=== PATIENT | female | born 1995 | race Caucasian/White ===

== ENCOUNTER 2024-09-09 16:51 | Observation (INO) | payer MEDICAID, SELFPAY ==
[2024-09-09] VITALS (45 sets, daily range): BP systolic 100–116; BP diastolic 52–80; PULSE 83–135; RESP 18–98; TEMP 36.9; O2SAT 96–100; BMI 29.2
[2024-09-09 17:44] LABS: ROM Kit Lot # 57807112; ROM Swab Mixed By: HILEL1; Swb Mxed in Solvent 1 min? Yes
[2024-09-09] MEDS: RINGERS LACTATED 1000 ML 1,000 ML 999 ML IV (18:00)
[2024-09-09 18:03] LABS: Rupture of Fetal Membranes Negative (Negative)
[2024-09-09] MEDS: TERBUTALINE SULF INJ 1 MG/ML VIAL 0.25 MG SC (19:01)
--- NOTE | 2024-09-09 19:42 | XR_ITS ---
Examination: Complete OB ultrasound greater than 14 weeks Date and time of exam: September 09, 20242014 hrs. Indications: Onset pelvic contractions today Findings: Viable intrauterine single fetus with single amniotic sac presentation cephalic Cardiac motion 164 BPM Placenta anterior grade 2 Umbilical cord insertion 3 vessel seen Amniotic fluid index 14.3 cm spine maternal right Cervix 4.2 cm Ovaries obscured by bowel gas. Composite estimated gestational age based on BPD, head circumference, abdominal circumference, femur length is 35 weeks 2 days Estimated weight 2539 g. Survey of intracranial anatomy, spinal anatomy, abdominal anatomy, four-chamber heart performed with no abnormalities identified. Impression: Viable intrauterine gestation cephalic presentation.
--- NOTE | 2024-09-09 21:08 | ESPR_ITS ---
Documentation for date of: 09/09/24 OB Labor Progress Note Pelvic Exam Dilation (cm): FINGERTIP Amniotic membrane status: Intact Contractions Monitor mode: External Contraction frequency: 2-3 Contraction intensity: Mild Status status: Category l Assessment and Plan Comments: Triage Note Zully is a 29yo with SIUP at 34wk presenting to L&D from the office for ctx and vaginal dampness . Ctx started at 0300, feels them as moderately strong. No obvious lof, no vaginal bleeding. Normal movement. Current : This has been uncomplicated, she has had regular OB care with [facility] Previous pregnancies: history of 1 prior uncomplicated vaginal delivery at term and 1 pre-term delivery ROS negative other than what was described above. Vitals wnl, afebrile General: well developed, well nourished, no acute distress, conversant Cardiac: normal heart rate Lungs: breathing without distress Abdomen: soft, gravid, non-tender, no rebound or guarding SCE: fingertip/thick/high, unchanged after 1 hour. RN saw abundant thick white curd-like discharge on her exam glove. 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 Composite estimated gestational age based on BPD, head circumference, abdominal circumference, femur length is 35 weeks 2 days Estimated weight 2539 g. Assessment: Zully is a 29yo with SIUP at 34wk with NO evidence of ROM or PTL. Cervical length 4.2cm. ANUPAMA 14.3cm, AmniSure negative. Vitals wnl, benign exam. Reassuring status. Suspect vaginal candidiasis as etiology for uterine irritability, swab pending for confirmation. Plan: -Patient to go to pharmacy and get OTC 7 day vaginal candidiasis treatment (such as Monostat), start using it tonight and complete 7 day course -Ja swab pending -Continue routine OB visits -Return precautions given Christelle Huang MD
[2024-09-10 10:22] LABS: BVAG Candida Negative (Negative); Bacterial Vaginosis Markers Positive (Negative); Candida glabrata Negative (Negative); Candida krusei PCR Negative (Negative); Trichomonas Negative (Negative)
--- NOTE | 2024-09-10 13:39 | ESPR_ITS ---
Documentation for date of: 09/10/24 OB Labor Progress Note Pelvic Exam Dilation (cm): FINGERTIP Amniotic membrane status: Intact Contractions Monitor mode: External Contraction frequency: 2-3 Contraction intensity: Mild Status status: Category l Assessment and Plan Comments: I called patient and let her know that her vaginal swab resulted today as positive for bacterial vaginosis. Negative for yeast. Informed she can stop using Monostat. I prescribed flagyl 500mg PO BID x7 days to her pharmacy ([facility] on [address]). Discussed importance of taking full course of the medication and letting her OB provider know about the result at next visit and that she was given abx. All questions answered. Christelle Huang MD
== END 2024-09-09 21:20 | disposition home or self-care (01) ==
PROVIDERS: Admitting Provider Obstetrics & Gynecology; Visit Provider Obstetrics & Gynecology
DX: O23.593 Infection of other part of genital tract in pregnancy, third trimester (principal); B96.89 Other specified bacterial agents as the cause of diseases classified elsewhere; O47.03 False labor before 37 completed weeks of gestation, third trimester; Z3A.35 35 weeks gestation of pregnancy
CPT/HCPCS: 59025; 59899; 76805; 81514; 84112; G0378; J3105; J7120

== ENCOUNTER 2024-09-29 00:17 | Observation (INO) | payer MEDICAID, SELFPAY ==
[2024-09-29 00:21] VITALS: BP 100/68; PULSE 99; RESP 16; RESP 98; TEMP 36.8
[2024-09-29 00:33] VITALS: BP 100/68; PULSE 102; PULSE 98; O2SAT 98
[2024-09-29 00:38] VITALS: PULSE 122; O2SAT 97; BMI 30.2
[2024-09-29 00:43] VITALS: PULSE 95; O2SAT 97
[2024-09-29 00:48] VITALS: PULSE 105; O2SAT 98
[2024-09-29 00:53] VITALS: PULSE 87; O2SAT 97
== END 2024-09-29 01:11 | disposition home or self-care (01) ==
PROVIDERS: Admitting Provider Obstetrics & Gynecology; PCP Family Medicine; Visit Provider Obstetrics & Gynecology
DX: O47.1 False labor at or after 37 completed weeks of gestation (principal); Z3A.38 38 weeks gestation of pregnancy
CPT/HCPCS: 59899

== ENCOUNTER 2024-10-11 15:59 | Inpatient (IN) | payer MEDICAID, SELFPAY ==
[2024-10-11] VITALS (27 sets, daily range): BP systolic 112–124; BP diastolic 60–76; PULSE 88–138; RESP 18–98; TEMP 36.9; O2SAT 98–100; BMI 30.8
[2024-10-11 16:34] LABS: ROM Kit Lot # 57807112; ROM Swab Mixed By: MARTB3; Rupture of Fetal Membranes Negative (Negative); Swb Mxed in Solvent 1 min? Yes
[2024-10-11] MEDS: RINGERS LACTATED 1000 ML 1,000 ML 999 ML IV (17:07)
[2024-10-11 17:37] LABS: Basophils % (Auto) 0 % (0-2.5); Eosinophils # (Auto) 0.1 Thou/mm3 (0.0-0.5); Eosinophils % (Auto) 1 % (0-10); Hematocrit 29.2 % (36.0-46.0); Hemoglobin 9.8 g/dL (12.0-16.0); Immature Granulocytes % (Auto) 0 % (0-0); Immature Granulocytes Auto 0.04 Thou/mm3 (0.00-0.00); Lymphocytes % (Auto) 19 % (10-50); Mean Corpuscular HGB Conc 33.6 g/dl (31.0-37.0); Mean Corpuscular Hemoglobin 25.5 pg (25.0-35.0); Mean Corpuscular Volume 76 fL (80-100); Monocytes # (Auto) 0.7 Thou/mm3 (0.0-0.8); Monocytes % (Auto) 6 % (0-12); Neutrophils # (Auto) 7.8 Thou/mm3 (1.8-7.7); Neutrophils % (Auto) 74 % (37-80); Nucleated Red Blood Cell % 0 /100 WBC (0); Platelet Count 242 Thou/mm3 (140-440); Red Blood Count 3.85 Miln/mm3 (4.00-5.20); White Blood Count 10.6 Thou/mm3 (3.6-11.0)
[2024-10-11 19:12] LABS: Basophils % (Auto) 0 % (0-2.5); Eosinophils # (Auto) 0.1 Thou/mm3 (0.0-0.5); Eosinophils % (Auto) 1 % (0-10); Hematocrit 31.7 % (36.0-46.0); Hemoglobin 10.1 g/dL (12.0-16.0); Immature Granulocytes % (Auto) 0 % (0-0); Immature Granulocytes Auto 0.03 Thou/mm3 (0.00-0.00); Lymphocytes # (Auto) 2.2 Thou/mm3 (1.0-4.8); Lymphocytes % (Auto) 19 % (10-50); Mean Corpuscular HGB Conc 31.9 g/dl (31.0-37.0); Mean Corpuscular Hemoglobin 25.5 pg (25.0-35.0); Mean Corpuscular Volume 80 fL (80-100); Monocytes # (Auto) 0.7 Thou/mm3 (0.0-0.8); Monocytes % (Auto) 6 % (0-12); Neutrophils # (Auto) 8.5 Thou/mm3 (1.8-7.7); Neutrophils % (Auto) 73 % (37-80); Nucleated Red Blood Cell % 0 /100 WBC (0); Platelet Count 241 Thou/mm3 (140-440); RDW Standard Deviation 41.8 fL (36.4-46.3); Red Blood Count 3.96 Miln/mm3 (4.00-5.20); White Blood Count 11.5 Thou/mm3 (3.6-11.0)
[2024-10-11] MEDS: MISOPROSTOL 50 mCg TABLET PO (20:38)
[2024-10-11 21:48] LABS: Amphetamine/Metham Scrn,Ur OB Negative (Negative); Benzoylecgonine Screen, Ur OB Negative (Negative); Opiate Screen,Urine OB Negative (Negative); THC Screen,Urine OB Negative (Negative)
[2024-10-11 22:24] LABS: Syphilis Nonreactive (Nonreactive)
[2024-10-12] VITALS (83 sets, daily range): BP systolic 103–134; BP diastolic 55–93; PULSE 62–131; RESP 16–17; TEMP 36.6–36.9; O2SAT 78–100
[2024-10-12] MEDS: RINGERS LACTATED 1000 ML 1,000 ML 100 ML IV ×2 (01:28→06:33)
[2024-10-12] MEDS: MISOPROSTOL 50 mCg TABLET PO (04:02)
[2024-10-12] MEDS: MISOPROSTOL 200 mCg TABLET 800 MCG PR (07:50)
[2024-10-12] MEDS: OXYTOCIN INJ 10 UNIT/ML VIAL IM (07:55)
[2024-10-12] MEDS: OXYTOCIN in NS 20 units 20 UNIT/1,000 ML BAG 125 UNIT IV (08:02)
[2024-10-12] MEDS: TRANEXAMIC ACID 1,000 MG IVPB 1,000 MG/100 ML BAG 200 MG IV (08:49)
--- NOTE | 2024-10-12 08:58 | PC.NURSE ---
straight cath done post delivery by Anisha Osborne, 200cc of urine noted
--- NOTE | 2024-10-12 09:03 | PD.LDHP ---
Documentation for date of: 10/12/24 OB Labor/Induct. HPI History of Present Illness Chief complaint: induction : 3 Para: 3 Term pregnancies: 1 pregnancies: 1 Living children: 2 History of Abortions: Spontaneous and Elective: 0 History of Vaginal deliveries: 2 History of sections: No History of : No Date of last menstrual period: 01/15/24 SUJATA: 10/10/24 Gestational Age (weeks): 40 Gestational Age (days): 2 Gestational age based on last menstrual period: 38 History of present illness: This is a 29-year-old 3 para 2 admit to labor and delivery for induction of labor because of postdates. Last period January 15, 2024. Estimated due date 10/10/2024. Patient has been followed at [facility] care. Her first visit was in the first trimester. She has a history of positive THC. Previous history of meth. A+, antibody screen negative, RPR nonreactive, rubella immune, hepatitis B negative, hep C negative, HIV negative, GBS negative. GC and Chlamydia were negative. 1 hour GTT was normal. GBS negative. Denies surgeries and denies chronic illness. Reports movement History of Present Dating criteria: LMP confirmed by 1st trimester US Adequate Care: Yes Ultrasounds: normal 1st trimester US and normal mid trimester US Obstetrical complications: none Medical complications: none Labs Labs: Positive: Rubella Titre, Negative: RPR, Hepatitis B, HIV, Chlamydia and Gonorrhea and Unknown: Herpes Type 1, Herpes Type 2, Group Beta Strep and Covid-19 Review of Systems Review of Systems Systems Reviewed: All systems reviewed, normal except as documented Past Medical History Surgical History SURGICAL: Negative Section Meds Home Medications and Allergies Home Medications ?Medication ?Instructions ?Recorded ?Confirmed ?Type PNV#14-iron [id number] 1 cap PO .q day 09/09/24 10/11/24 History 27 mg iron-1 mg-300 mg-50 mg capsule Allergies Allergy/AdvReac Type Severity Reaction Status Date / Time No Known Allergies Allergy Verified 10/12/24 07:04 OB Exam Physical Exam Vital signs: Temp Pulse Resp BP Pulse Ox 98.4 F 109 H 18 121/59 L 100 10/11/24 16:08 10/12/24 08:44 10/11/24 16:08 10/12/24 08:59 10/12/24 09:02 Narrative: Vital signs stable afebrile. Gynecoid pelvis. Exam on admission was 50%, 3, -3. Vertex. heart rate was category 1. There is accelerations and moderate variability. Had occasional contraction. Detailed Labor and Delivery Exam Dilation (cm): 3 Effacement (%): 50 Cervix position: posterior station: -3 Consistency: soft Presentation: Vertex monitor accelerations: 15x15 monitor decelerations: None superintendent terminal variability: Moderate (11-25) Contraction frequency (min): occ Contraction duration (sec): 30 Tachysystole: No Contraction intensity: Mild OB Results Labs 10/11/24 17:44 Labs: Short CBC 10/11/24 10/11/24 Range/Units 17:08 17:44 WBC 10.6 11.5 H (3.6-11.0) Thou/mm3 Hgb 9.8 L 10.1 L (12.0-16.0) g/dL Hct 29.2 L 31.7 L (36.0-46.0) % Plt Count 242 241 (140-440) Thou/mm3 OB Assessment & Plan Assessment and Plan (1) Normal labor and delivery: Status: Acute Additional Plan Induction method: per misoprostol protocol Plan: induction, anticipate NVD and consult MD meraz
--- NOTE | 2024-10-12 09:08 | OBDSUM_ITS ---
Data ([place]far[place]) Data Hx Section: No : 3 Term: 1 : 1 Livin Abortions: Spontaneous & Theraputic: 0 Delivery Data (Alfaro) Labor Data Initiation of labor: Induction Induction/Augmentation Agent: Cytotec-PO ROM date: 10/12/24 ROM time: 07:17 Amniotic membrane rupture type: Artificial Amniotic fluid description: Clear Delivery Data EDC: 10/10/24 EDC calculated by:: LMP/early US confirmation Date of arrival to unit: 10/11/24 Time of arrival to unit: 15:59 Onset of labor date: 10/12/24 Onset of labor time: 07:00 Complete dilation date: 10/12/24 Complete dilation time: 07:45 [place] delivery date: 10/12/24 [place] delivery time: 07:51 Placenta delivery date: 10/12/24 Placenta delivery time: 07:57 Stage 1 total time: Labor - Stage 1 Duration 45 minutes Delivered by: Anisha Washington Delivery nurse: Alec BRANTLEY [place] nurse: Sally Summers Street Department Dispatcher at delivery: No Support person(s) at delivery: FOB Delivery Method Delivery: Vaginal Delivery Type: Primary Presentation: Vertex Position: OA Anesthesia Type Primary Anesthesia: Epidural Secondary Anesthesia: Epidural Delivery Room Medications Intrapartum Medications: Tocolytics Post Delivery Medications: Tocolytics and Cytotec Post Delivery Medications N/A: No Placenta Placenta Delivery: Spontaneous (inspected, intact) Placenta Cultures Obtained: No Placenta Sent for Examination: No Cord Sample: Cord Blood Obtained Episiotomy Episiotomy: None Lacerations #1: Periurethral: mid and several small vag lac Perineal repair Sutures used for repair: 3.0 Vicryl EBL Estimated blood loss (ml): 400 Umbilical Cord Umbilical Vessels: 3 Nuchal Cord: x4 Loosely Body Cord: x1 [place] Data (Alfaro) [place] Data [place]'s gender: Female Identification band number: [id number] weight (gms): 3010 g Weight (pounds): 6 lbs and 10.2 ozs 1 minute: 8 5 minutes: 9
[2024-10-12] MEDS: IBUPROFEN TAB 400 MG TABLET 800 MG PO (16:22)
[2024-10-12 19:23] LABS: Basophils % (Auto) 0 % (0-2.5); Eosinophils % (Auto) 0 % (0-10); Hematocrit 28.4 % (36.0-46.0); Hemoglobin 9.4 g/dL (12.0-16.0); Immature Granulocytes % (Auto) 0 % (0-0); Immature Granulocytes Auto 0.04 Thou/mm3 (0.00-0.00); Lymphocytes # (Auto) 1.9 Thou/mm3 (1.0-4.8); Lymphocytes % (Auto) 14 % (10-50); Mean Corpuscular HGB Conc 33.1 g/dl (31.0-37.0); Mean Corpuscular Hemoglobin 25.1 pg (25.0-35.0); Mean Corpuscular Volume 76 fL (80-100); Monocytes # (Auto) 0.7 Thou/mm3 (0.0-0.8); Monocytes % (Auto) 5 % (0-12); Neutrophils # (Auto) 11.2 Thou/mm3 (1.8-7.7); Neutrophils % (Auto) 81 % (37-80); Nucleated Red Blood Cell % 0 /100 WBC (0); Platelet Count 204 Thou/mm3 (140-440); RDW Standard Deviation 39.5 fL (36.4-46.3); Red Blood Count 3.75 Miln/mm3 (4.00-5.20); White Blood Count 13.8 Thou/mm3 (3.6-11.0)
[2024-10-12] MEDS: DOCUSATE SOD 100 MG CAPSULE PO (21:06)
[2024-10-13] MEDS: ACETAMINOPHEN 325 MG TABLET 650 MG PO (00:12)
[2024-10-13 04:15] VITALS: BP 112/77; PULSE 80; RESP 18; TEMP 36.7; O2SAT 97
[2024-10-13] MEDS: IBUPROFEN TAB 400 MG TABLET 800 MG PO (04:36)
[2024-10-13 08:10] VITALS: BP 106/68; PULSE 81; RESP 15; TEMP 36.6; O2SAT 96
--- NOTE | 2024-10-13 08:16 | PD.LDPPPRG ---
Subjective Subjective Interval history: No complaints of pain. No dizziness. Bonding breast Exam Vital Signs Temp Pulse Resp BP Pulse Ox O2 Del Method 98.0 F 80 18 112/77 97 Room Air 10/13/24 04:15 10/13/24 04:15 10/13/24 04:15 10/13/24 04:15 10/13/24 04:15 10/13/24 04:15 Narrative Exam Vital signs stable afebrile. Pressure soft. Fundus firm below the umbilicus. Perineum intact no swelling. Small periurethral tear that was repaired no swelling. Small lochia. Uterus well involuted. Negative Homans' sign. 2+ DTRs Objective Labs 10/12/24 18:45 Labs: Laboratory Results - last 24 hr 10/12/24 18:45 WBC 13.8 H RBC 3.75 L Hgb 9.4 L Hct 28.4 L MCV 76 L MCH 25.1 MCHC 33.1 RDW Std Deviation 39.5 Plt Count 204 D Neut % (Auto) 81 H Lymph % (Auto) 14 [place] % (Auto) 5 Eos % (Auto) 0 Baso % (Auto) 0 Neut # (Auto) 11.2 H Lymph # (Auto) 1.9 [place] # (Auto) 0.7 Eos # (Auto) 0.0 Baso # (Auto) 0.0 Immature Gran # (Auto) 0.04 H Absolute Nucleated RBC 0.00 Immature Gran % 0 Nucleated RBC % 0 Assessment & Plan Problem List (1) Normal labor and delivery: Status: Acute Assessment Comment Assessment comment: 24hr pp Plan Comment Plan Comment: Discharge home with baby. Continue vitamins and iron. Tylenol ibuprofen for pain. Danger signs. Return in 3 weeks visit. Discussed ER precautions and parameters. Discussed signs and symptoms of infection. Discussed danger signs and symptoms. Time Spent With Patient Time: Total time spent is greater than 50% in coordination of care (as documented) at patient's floor/unit and/or counseling patient:
--- NOTE | 2024-10-13 08:20 | PD.LDDS ---
DS: Providers Provider Date of admission: 10/11/24 17:30 Primary care physician: Physician No Primary/Family Admitting Provider: Bruce Schulz MD Attending Provider on Admission: Anisha Osborne CNM Consults: 10/12/24 09:55 Referral Routine Comment: Attending Provider on DC: Anisha Osborne CNM Discharging Provider: Anisha Osborne CNM DS: Diagnosis Problem List Completed Was Problem List Reviewed/Reconciled?: Yes Summary/Hosp Course Brief History: This is a 29-year-old 3 para 2 admit to labor and delivery for induction of labor because of postdates. Last period January 15, 2024. Estimated due date 10/10/2024. Patient has been followed at [facility] care. Her first visit was in the first trimester. She has a history of positive THC. Previous history of meth. A+, antibody screen negative, RPR nonreactive, rubella immune, hepatitis B negative, hep C negative, HIV negative, GBS negative. GC and Chlamydia were negative. 1 hour GTT was normal. GBS negative. Denies surgeries and denies chronic illness. Reports movement Peripartum Data Delivery Method: Normal Vaginal Delivery Episiotomy Description: None Laceration Description: yes (pu) complications: none Time Spent with Patient Time attestation: Total time spent providing and/or coordinating discharge services: Exam Vital Signs Temp Pulse Resp BP Pulse Ox O2 Del Method 98.0 F 80 18 112/77 97 Room Air 10/13/24 04:15 10/13/24 04:15 10/13/24 04:15 10/13/24 04:15 10/13/24 04:15 10/13/24 04:15 Discharge Plan Plan Patient Disposition: HOME (Self Care) Patient condition on transfer: Stable Prescriptions/Referrals Prescriptions/Med Rec: No Action PNV #[id number] 27 mg iron-1 mg -300 mg-50 mg capsule 1 cap PO .q day Referrals: No Primary/Family,Physician [Primary Care Provider] - Patient/Caregiver Discharge Instructions Meds to Beds: No Discharge Activity: resume usual activities Education Materials: After a Vaginal , Understanding Blues, Breast Care After Print Language: Slovak Activity Restrictions/Additional Instructions: Discharge home with baby. Continue vitamins and iron. Tylenol ibuprofen for pain. Danger signs. Return in 3 weeks visit. Discussed ER precautions and parameters. Discussed signs symptoms of infection. Stand Alone Forms: Mikayla Award Info., Patient Portal Info Letter Discharge Order Discharge Orders: Discharge (Routine); Ordered 10/13/24 Ordered By: Anisha Osborne Planned Discharge Date 10/13/24
[2024-10-13] MEDS: DOCUSATE SOD 100 MG CAPSULE PO (08:36)
== END 2024-10-13 13:30 | disposition home or self-care (01) | DRG 560 ==
LOC: S4NX 10-13 06:05 → S4SX 10-13 06:05
PROVIDERS: Advanced Practice Midwife; Admitting Provider Obstetrics & Gynecology; Visit Provider Specialist
DX: O48.0 Post-term pregnancy (principal); Z37.0 Single live birth; Z3A.40 40 weeks gestation of pregnancy; O69.81X0 Labor and delivery complicated by cord around neck, without compression, not applicable or unspecified; O69.82X0 Labor and delivery complicated by other cord entanglement, without compression, not applicable or unspecified
CPT/HCPCS: 36415; 80307; 84112; 85025; 86780; 86850; 86900; 86901; J2590; J2795; J3010; J3490; J7120; S0191; A9270